=== PATIENT | female | born 1975 | race Caucasian/White ===

== ENCOUNTER 2023-10-14 07:31 | Day surgery (SDC) | payer OTHER ==
[~2023-10-14] VITALS: Ht 161.3 cm; Wt 74.4 kg
[2023-10-14 08:34] VITALS: BP 125/94; PULSE 65; TEMP 97.7
[2023-10-14] MEDS ORDERED: BOTOX 100100 U/VIAL IM (08:37)
[2023-10-14] MEDS ORDERED: MAXALT10 MG PO (08:39)
--- NOTE | 2023-10-14 09:00 | NUR ---
The patient ambulated back to [place] 3 independently using a steady gait and appeared to tolerate the activity well. Vital signs obtained. Consent signed. 20G IV started in left hand on second attempt, LR infusing without difficulty. Assessment completed. Home medications reconcilled. Warm blankets provided. Family to be brought back to be at her bedside. Call light is within reach. The patient denies any further needs at this time.
[2023-10-14] MEDS ORDERED: NORCO 325 MG-51 TAB PO (09:56)
[2023-10-14] MEDS ORDERED: CEPHALEXIN500 M1 PO (10:39)
[2023-10-14 10:42] VITALS: BP 119/79; PULSE 80; TEMP 97.4
[2023-10-14 10:55] VITALS: BP 115/75; PULSE 66
[2023-10-14 11:10] VITALS: BP 109/74; PULSE 68
[2023-10-14 11:25] VITALS: BP 112/88; PULSE 68
[2023-10-14 11:55] VITALS: BP 112/67; PULSE 70
--- NOTE | 2023-10-14 12:20 | NUR ---
1042 RETURNS TO ROOM 3 FROM OR PER CART. DROWSY, AROUSES SPONTANEOUSLY. FAMILIARIZED WITH SURROUNDINGS. HOB ELEVATED 30 DEGREES. RESP CLEAR, SPONTANEOUS. VITAL SIGNS OBTAINED. DRESSING RIGHT BREAST CLEAN DRY AND INTACT. CALL LIGHT AT SIDE. IN ROOM 1055 AROUSES EASILY. HOB ELEVATED 45 DEGREES. 1110 AWAKE, ALERT. HOB ELEVTED 75 DEGREES. TOLERATES PO JUICE AND MUFFIN WITHUOT NAUSEA. 1116 PO NORCO GIVEN FOR RIGHT BREAST DISCOMFORT 02/07 1137 PO MOTRIN GIVEN FOR PAIN 06/09 1138 FENTANYL 50 MCG GIVEN IV FOR RIGHT BREAST PAIN 06/09. DRESSING DRY. SURGICAL AREA SOFT WITH GENTLE PALPATION 1145 REPORTS SIGNIFICANT INCREASE IN COMFORT. 1155 DISCHARGE INSTRUCTIONS REVIEWED. PATIENT VERBALIZES UNDERSTANDING. COPY PROVIDED IN DISCHARGE FOLDER. 1210 REPORTS MILD DISCOMFORT. 11/09 1212 SITS ON EDGE OF CART. DRESSES SELF, THEN AMBULATES TO BATHROOM WITH STANDBY ASSIST
== END 2023-10-14 12:20 | disposition home or self-care (01) ==
LOC: SDCO 07:31
DX: N60.11 Diffuse cystic mastopathy of right breast (principal); N64.52 Nipple discharge
CPT/HCPCS: J0690; J2250; J2704; J3010; J7120